=== PATIENT | male | born 1985 | race Caucasian/White ===

== ENCOUNTER 2019-01-12 21:01 | Emergency (ER) | payer SELFPAY ==
[2019-01-12] MEDS ORDERED: KETOROLAC 30 MG/ML VIAL IVP ONE (21:26)
[2019-01-12 21:44] LABS: BASO % 0.6 % (0-6); GRAN % 35.5 % (47-80); HEMOGLOBIN 13.8 gm/dl (14.0-18.0); MEAN CELL VOLUME 92.8 fl (81-97); MEAN CORPUSCULAR HEMOGLOBIN 31.2 pg (27-33); MEAN CORPUSCULAR HGB CONC 33.7 g/dl (32-36); MEAN PLATELET VOLUME 9.7 fl (7.4-10.4); MONO % 13.9 % (0-9); PLATELET COUNT 219 K/uL (130-400); RED BLOOD COUNT 4.42 M/uL (4.40-5.70); RED CELL DISTRIBUTION WIDTH 12.9 % (11.5-14.5)
[2019-01-12 21:58] LABS: BLOOD UREA NITROGEN 11 mg/dL (6-20); CREATININE 0.7 mg/dL (0.7-1.2); EST GLOMERULAR FILTRATION RATE > 60 mL/min; LIPASE 19 U/L (13-60); TOTAL PROTEIN 6.5 g/dL (6.6-8.7)
[2019-01-12 22:00] LABS: GLUCOSE,RANDOM 107 mg/dL (74-109)
[2019-01-12 22:03] LABS: ALB/GLOB RATIO 1.7 (1.1-1.8); ALBUMIN 4.1 g/dL (4.0-5.0); ALKALINE PHOSPHATASE 67 U/L (40-129); ALT/SGPT 16 U/L (<41); AST/SGOT 16 U/L (10.0-50.0)
--- NOTE | 2019-01-12 22:31 | Emergency Department Record ---
History of Present Illness - General Chief complaint: Flank Pain Stated complaint: LSIDE ,FLANK,GROIN AREA SWOLLEN AND SORE Time Seen by Provider: 01/12/19 21:25 Source: Patient Mode of Arrival: Ambulatory Limitations: No limitations - History of Present Illness Initial comments: 34 yo male presents to ED for evaluation of pain to the left abdominal region extending to the left groin and left chest area. Patient reports "swelling" of the left abdomen and chest as well. Patient also reports left-sided flank pain symptoms. Patient reports that his symptoms have been present for several days , denies nausea or vomiting symptoms. Patient denies fevers, chills, or dysuria symptoms. Patient also denies hematuria symptoms. Patient denies health problems at her baseline, denies previous abdominal surgeries. MD Complaint: Other Onset/Timin -: Days(s) Location: Left flank, Left inguinal region, Left testicle Radiation: Back Severity scale (1-10): 8 Quality: Aching Consistency: Constant Improves with: Movement Worsens with: Movement Reports: Denies other symptoms - Related Data Sexually active: Yes Home Medications Medication Instructions Recorded Confirmed Last Taken No Home Med [NO HOME MEDS] 01/12/19 01/12/19 Unknown Allergies Allergy/AdvReac Type Severity Reaction Status Date / Time varenicline [From Chantix] Allergy ALTERED Verified 01/12/19 21:27 MENTAL STATUS Travel Screening - Travel/Exposure Within Last 30 Days Have you traveled within the last 30 days?: No - Travel/Exposure Within Last Year Have you traveled outside the [place] in the last year?: No - Additonal Travel Details Have you been exposed to anyone with a communicable illness?: No - Travel Symptoms Symptom Screening: None Review of Systems Constitutional: Denies: Chills, Fever, Malaise, Night sweats Eyes: Denies: Eye discharge, Eye pain ENT: Denies: Congestion, Ear pain, Epistaxis Respiratory: Denies: Cough, Dyspnea Cardiovascular: Denies: Chest pain, Dyspnea on exertion Endocrine: Denies: Fatigue, Heat or cold intolerance Gastrointestinal: Reports: Abdominal pain. Denies: Nausea, Vomiting Genitourinary: Reports: Testicular pain. Denies: Dysuria, Hematuria, Incontinence, Retention Musculoskeletal: Reports: Back pain. Denies: Arthralgia, Gout, Joint swelling Skin: Denies: Bruising, Change in color Neurological: Denies: Abnormal gait, Confusion, Headache, Seizure Psychiatric: Denies: Anxiety Hematological/Lymphatic: Denies: Anemia, Blood Clots Past Medical History - SOCIAL HISTORY Smoking Status: Heavy tobacco smoker (>10/day) Alcohol Use: Rare Drug Use: Heavy Drug Use Detail:: Marijuana - RESPIRATORY Hx Respiratory Disorders: No - CARDIOVASCULAR Hx Cardio Disorders: No - NEURO Hx Neuro Disorders: No - GI Hx GI Disorders: No - Hx Genitourinary Disorders: No - ENDOCRINE Hx Endocrine Disorders: No - MUSCULOSKELETAL Hx Musculoskeletal Disorders: No - PSYCH Hx Psych Problems: No - HEMATOLOGY/ONCOLOGY Hx Hematology/Oncology Disorders: No Family Medical History Any Significant Family History?: No Physical Exam - General General Appearance: Alert, Oriented x3, Cooperative, Mild distress Limitations: No limitations - Head Head exam: Atraumatic, Normocephalic, Normal inspection Head exam detail: negative: Abrasion, Contusion, Lozano's sign, General tenderness, Hematoma, Laceration - Eye Eye exam: Normal appearance. negative: Conjunctival injection, Periorbital swelling, Periorbital tenderness, Scleral icterus - ENT Ear exam: negative: Auricular hematoma, Auricular trauma Nasal Exam: negative: Active bleeding, Discharge, Dried blood, Foreign body Mouth exam: negative: Drooling, Laceration, Muffled voice, Tongue elevation - Neck Neck exam: Normal inspection, Other (Small raised lesion to the posterior neck c /w early cellulitis vs. abscess). negative: Meningismus - Respiratory Respiratory exam: Normal lung sounds bilaterally. negative: Rales, Respiratory distress, Rhonchi, Stridor - Cardiovascular Cardiovascular Exam: Regular rate, Normal rhythm, Normal heart sounds - GI/Abdominal GI/Abdominal exam: Soft, Tenderness (TTP LUQ, LLQ, left groin region. No rebound, guarding, or peritoneal signs are present on examination.). negative: Rebound, Rigid - Rectal Rectal exam: Deferred - exam: Circumcision, Testicular tenderness (Mild scrotal tenderness posteriorly, no evidence for femporal hernia present.). negative: Scrotal swelling - Extremities Extremities exam: negative: Calf tenderness, Pedal edema, Tenderness - Back Back exam: Reports: CVA tenderness (L). Denies: CVA tenderness (R) - Neurological Neurological exam: Alert, Normal gait, Oriented X3 - Psychiatric Psychiatric exam: Normal affect, Normal mood - Skin Skin exam: Normal color. negative: Abrasion Type of lesion: negative: abrasion Course Vital Signs 01/12/19 21:51 Temperature 98.2 F Pulse Rate 83 Respiratory 18 Rate Blood Pressure 136/81 Pulse Ox 98 - Reevaluation(s) Reevaluation #1: 01/12/19 22:31 Initial laboratory studies were reviewed and are grossly unremarkable for an acute process. Reevaluation #2: 01/13/19 00:39 CT Abdomen and Pelvis: No acute findings The stomach is distended with ingested debris Patient was updated on his final CT imaging result. Patient is coloring on re-examination with colored pencils, appears well on re- examination. Discussed transfer with the patient for scrotal US given his symptoms extending down to the scrotal area, patient has declined. Patient reports that he wants to leave at this time. Medical Decision Making - Lab Data Result diagrams: 01/12/19 21:38 01/12/19 21:38 Lab Results 01/12/19 01/12/19 Range/Units 21:38 21:38 WBC 7.0 (4.2-12.2) K/uL RBC 4.42 (4.40-5.70) M/uL Hgb 13.8 L (14.0-18.0) gm/dl Hct 41.0 L (42.0-52.0) % MCV 92.8 (81-97) fl MCH 31.2 (27-33) pg MCHC 33.7 (32-36) g/dl RDW 12.9 (11.5-14.5) % Plt Count 219 (130-400) K/uL MPV 9.7 (7.4-10.4) fl Gran % 35.5 L (47-80) % Lymphocytes % 46.0 H (16-45) % Monocytes % 13.9 H (0-9) % Eosinophils % 4.0 (0-6) % Basophils % 0.6 (0-6) % Sodium 141 (136-145) mmol/L Potassium 4.0 (3.4-4.5) mmol/L Chloride 102 (98-107) mmol/L Carbon Dioxide 28.0 (22-29) mmol/L Anion Gap 11.0 (7-16) BUN 11 (6-20) mg/dL Creatinine 0.7 (0.7-1.2) mg/dL Estimated GFR > 60 mL/min Random Glucose 107 (74-109) mg/dL Calcium 8.6 (8.6-10.0) mg/dL Total Bilirubin 0.20 (0.2-1.0) mg/dL AST 16 (10.0-50.0) U/L ALT 16 (<41) U/L Alkaline Phosphatase 67 (40-129) U/L Total Protein 6.5 L (6.6-8.7) g/dL Albumin 4.1 (4.0-5.0) g/dL Globulin 2.4 (1.4-4.8) gm/dL Albumin/Globulin Ratio 1.7 (1.1-1.8) Lipase 19 (13-60) U/L Disposition Disposition: Discharge Clinical Impression: Abdominal pain Qualifiers: Abdominal location: left lower quadrant Qualified Code(s): R10.32 - Left lower quadrant pain Disposition: Home, Self-Care Condition: (2) Stable Instructions: Abdominal Pain (ED) Additional Instructions: Return to ED if your symptoms worsen or if you have any concerns. Follow-up with your family doctor in 3-5 days as directed. Forms: Patient Portal Access Time of Disposition: 00:40 Quality - Quality Measures Quality Measures: N/A - Blood Pressure Screening Does Patient Have Any of the Following: No Blood Pressure Classification: Pre-Hypertensive BP Reading Systolic Measurement: 136 Diastolic Measurement: 81 Screening for High Blood Pressure: < Pre-Hypertensive BP, F/U Documented > [ [id number]] Pre-Hypertensive Follow-up Interventions: Referral to alternative/primary care provider.
[2019-01-13 00:04] LABS: URINE APPEARANCE SL CLOUDY; URINE BILIRUBIN NEGATIVE (NEGATIVE); URINE BLOOD NEGATIVE (NEGATIVE); URINE COLOR YELLOW; URINE GLUCOSE (UA) NEGATIVE (NEGATIVE); URINE KETONE NEGATIVE (NEGATIVE); URINE LEUKOCYTE ESTERASE NEGATIVE (NEGATIVE); URINE NITRITE NEGATIVE (NEGATIVE); URINE PROTEIN TRACE (NEGATIVE); URINE UROBILINOGEN 0.2 E.U./dL (0.20 - 1.00)
[2019-01-13] MEDS ORDERED: DIAZEPAM (VALIUM) 5MG/ML **10ML VIAL IVP ONE (00:16)
--- NOTE | 2019-01-15 07:34 | CT SCAN REPORT ---
EXAM: CT OF THE ABDOMEN AND PELVIS WITH CONTRAST HISTORY: LEFT SIDED ABDOMINAL PAIN. TECHNIQUE: CT of the abdomen and pelvis was obtained with 100 ml Omnipaque 300 intravenous contrast. Comparison: None. FINDINGS: The lung bases are clear. The gallbladder is contracted, no appreciable abnormality. Unremarkable appearance of the liver, spleen, adrenal glands, and pancreas. Symmetric renal perfusion. No hydronephrosis. Moderate volume of stool throughout the colon. Normal appendix. The small bowel is not dilated. Prominent distention of the stomach with ingested material. No free air or free fluid. The abdominal aorta is not dilated. Unremarkable urinary bladder. No acute osseous findings. IMPRESSION: 1. NO ACUTE FINDINGS IN THE ABDOMEN OR PELVIS. 2. MODERATE COLONIC STOOL BURDEN. THE STOMACH IS PROMINENTLY DISTENDED WITH INGESTED MATERIAL. 3. A PRELIMINARY REPORT WAS PROVIDED BY [facility]. JOB NUMBER: [id number] MTDD
== END 2019-01-13 00:59 | disposition home or self-care (01) ==
LOC: ER 21:01
DX: R10.32 Left lower quadrant pain (principal); N50.812 Left testicular pain; F17.210 Nicotine dependence, cigarettes, uncomplicated
CPT/HCPCS: 74177; 80053; 81003; 83690; 85025; 99283; 99284; J1885